=== PATIENT | male | born 1950 | race Caucasian/White ===

== ENCOUNTER 2020-01-17 11:21 | Outpatient (REF) | payer OTHER, SELFPAY ==
[2020-01-17 13:43] LABS: PSA,Total (Free>4and<10) 2.75 ng/mL (0.00-4.00)
== END 2020-01-17 11:22 | disposition home or self-care (01) ==
LOC: HO.LAB 11:21
PROVIDERS: Visit Provider Urology
DX: R97.20 Elevated prostate specific antigen [PSA] (principal); Z12.5 Encounter for screening for malignant neoplasm of prostate
CPT/HCPCS: 84153

== ENCOUNTER → 2020-01-19 10:55 | Outpatient (BNVA) | payer OTHER, SELFPAY | PROVIDERS: PCP Internal Medicine; Visit Provider Urology | DX: Z76.89 Persons encountering health services in other specified circumstances (principal) ==

== ENCOUNTER 2020-07-09 14:30 | Outpatient (REF) | payer OTHER, SELFPAY ==
[2020-07-09 15:45] LABS: PSA,Total (Free>4and<10) 2.69 ng/mL (0.00-4.00)
== END 2020-07-09 14:31 | disposition home or self-care (01) ==
LOC: HO.LAB 14:30
PROVIDERS: PCP Internal Medicine; Visit Provider Urology
DX: Z12.5 Encounter for screening for malignant neoplasm of prostate (principal); R97.20 Elevated prostate specific antigen [PSA]
CPT/HCPCS: 36415; 84153

== ENCOUNTER → 2020-07-19 10:18 | Outpatient (BNVA) | payer OTHER, SELFPAY | PROVIDERS: PCP Internal Medicine; Visit Provider Urology ==

== ENCOUNTER 2020-09-20 11:25 | Outpatient (AMB) | payer OTHER, SELFPAY ==
--- NOTE | 2020-09-20 11:41 | MHC.OFFVIS ---
Intake Intake Visit Reasons: 2 month tele Intake Note: Patient is present for follow up Cleaner Wall Required: No Allergies No Known Allergies Allergy (Verified 09/20/20 11:41) HPI HPI Comments History of Present Illness Details Danny is a pleasant male. He is a patient of Dr. Cheney. He is seen for the following urologic issues - BPH - elevated PSA Telephone evaluation 15 minutes the patient PSA stable review of tamsulosin Elevated PSA/Abnormal ANDREA: lower urinary tract symptoms Check PSA in 6 months He presents for further evaluation of elevated PSA. Current management is observation. Laboratory investigations include a total PSA evaluation 04/27 8.8, 01/25 2.75 (F) - 07/26 2.7 Two older brothers have had prostate cancer. Individualized Prostate Cancer Risk Calculator 5-10% high risk, Discussion regarding TRUS biopsy performed. A TRUS biopsy has been performed and is negative 06/25 All cores BPH PSA at biopsy 8.8 Overall symptoms are mild. Associated conditions diabetes No dyslipidemia No dysuria No erectile dysfunction No hematuria No hypertension No prostatitis No renal insufficieny No urinary retention No urinary tract infections No Therapeutic plan will be continue on finasteride. [facility] Medical History (Updated 09/20/20 @ 12:22 by Dani Pham MD) Benign prostatic hyperplasia with lower urinary tract symptoms Poor urinary stream Elevated PSA Family History (Updated 01/19/20 @ 10:56 by COLLEEN Sellers) Other Prostate cancer Review of Systems Const All systems reviewed & are unremarkable except as noted in HPI and below Reports no additional complaints Resp Reports no additional complaints GI Reports no additional complaints Reports as per HPI Musc Reports no additional complaints Physical Exam Telemedicine evaluation Appropriate responses Regular breathing rate and rhythm [facility] Head: Yes normal to inspection Ears: hearing grossly normal bilaterally Eyes General: appearance normal, both eyes and all related structures Neck Neck: Yes normal visual inspection Chest Chest palpation & inspection: normal inspection of the chest Resp Effort & Inspection: normal respiratory effort and able to speak in complete sentences Assessment & Plan Assessment & Plan (1) Nocturia more than twice per night: Code(s): R35.1 - Nocturia (2) Elevated PSA: Code(s): R97.20 - Elevated prostate specific antigen [PSA] (3) Weak urinary stream: Code(s): R39.12 - Poor urinary stream (4) Benign prostatic hyperplasia with lower urinary tract symptoms: Code(s): N40.1 - Benign prostatic hyperplasia with lower urinary tract symptoms Plan - Dani Pham MD: Six-month follow-up PSA Orders: Orders Prostate Specific Antigen 6 Months R97.20 Patient Instructions: Imaging studies, laboratory and physical exam results were discussed and reviewed in detail. No major barriers to patient understanding were identified. An opportunity to ask questions regarding the treatment plan was provided. All questions were answered. The patient expressed understanding and agreement with the above treatment plan. The patient is aware they should contact our office by phone for worsening of their current condition or the appearance of new urologic symptoms. Compliance is encouraged with any medications and followup testing that is ordered. It is a privilege to participate in the urologic care of your patient. If you have any questions or concerns regarding treatment for the above conditions, or other urologic issues, please do not hesitate to contact me. The office telephone contact is [phone]. This note is constructed using voice recognition software. While every effort has been made to ensure accuracy envelope machine adjuster errors may have been included. Yours sincerely, Dr Dani Pham MD, [facility] - Urology Providers of Expert, Compassionate Care for the Genitourinary System Telehealth Telehealth Location of provider rendering services: practice address Location of patient: address on file Patient Identification confirmed using: Name, : Yes Telehealth method: voice only Patient verbally consented to treatment: Yes Patient verbally consented to billing insurance company: Yes Patient informed of any privacy concerns related to visit: Yes Coding Level of Care Code Tele Est Pt Level 3 (29853) Diagnoses Nocturia more than twice per night R35.1 Elevated PSA R97.20 Weak urinary stream R39.12 Benign prostatic hyperplasia with lower urinary tract symptoms N40.1
== END 2020-09-20 13:05 | disposition home or self-care (01) ==
LOC: HO.HUSH 11:25
PROVIDERS: PCP Internal Medicine; Visit Provider Urology
DX: N40.1 Benign prostatic hyperplasia with lower urinary tract symptoms (principal); R35.1 Nocturia; R97.20 Elevated prostate specific antigen [PSA]; R39.12 Poor urinary stream
CPT/HCPCS: 99499

== ENCOUNTER → 2020-09-20 11:25 | Outpatient (BNVA) | payer OTHER, SELFPAY | PROVIDERS: PCP Internal Medicine; Visit Provider Urology ==